=== PATIENT | female | born 1930 | race Caucasian/White ===

== ENCOUNTER 2016-11-26 20:55 | Inpatient (IN) | payer MEDICARE, MEDICAID ==
[2016-11-26] MEDS ORDERED: SODIUM CHLORIDE 0.9% 10 ML FLUSH FLUSH PRN (21:05)
[2016-11-26] MEDS ORDERED: Albuterol/Ipratropium Neb 3 ML NEB NEB ONE (21:06)
--- NOTE | 2016-11-26 21:11 | EDPRACDOC ---
- General Information Information Source: Patient Mode Of Arrival: Ambulance - History of Present Illness Onset: today Exact Onset of Symptoms: Unknown HPI: Pt states she just doesn't feel well today and has pain in R hip and knee due to fall yesterday. C/o yellow productive cough, leg swelling. Denies fever, earache, sore throat, congestion, cp, so, abd pain, n/v, changes in bowel or bladder, rash. Symptoms Started: Reports: Gradually Symptoms Description: Constant Weakness: Bilateral: Generalized Symptoms: Reports: Weak Symptom Severity: Reports: Unable to performs ADL's Relevant History of: Denies: O, Anemia, CVA, DM, Electrolyte disorder, GI Bleed , MA, TIA Associated signs and symptoms:: Reports: None <Sonali Monroe E - Last Filed: 11/26/16 23:32> <Anastacia Gonzalez - Last Filed: 11/26/16 23:36> - General Information Stated Complaint: DIFFICULTY BREATHING Time Seen by Provider: 11/26/16 21:00 Home Medications: Home Medications Albuterol Sulfate [Proventil (Concentrate)] 0.5 ml NEB BID 11/05/15 Alprazolam [Xanax] 0.5 mg PO QHS 11/05/15 Aspirin/Calcium Carbonate/Mag [Aspirin Buffered 325 mg Tab] 325 mg PO DAILY Atorvastatin Calcium [Lipitor] 10 mg PO QHS 11/05/15 Azelastine HCl [Astelin] 1 spray RJ BID 11/05/15 Cetirizine HCl [Zyrtec] 10 mg PO DAILY 11/05/15 Docusate Sodium 100 mg PO DAILY 11/05/15 Escitalopram Oxalate [Lexapro] 20 mg PO DAILY 11/05/15 Ferrous Sulfate 325 mg PO DAILY 11/05/15 Fluticasone Propionate [Flonase] 1 spray RJ DAILY 11/05/15 Fluticasone/Salmeterol [Advair 250-50 Diskus] 1 puff INH BID 11/05/15 Furosemide [Lasix] 40 mg PO BID 11/05/15 Glipizide Xl [Glucotrol Xl] 2.5 mg PO 0700 11/05/15 Multivitamin [Multiple Vitamins] 1 tab PO DAILY 11/05/15 Oxycodone HCl [Roxicodone] 5 mg PO QID 11/05/15 Pantoprazole Sodium [Protonix] 40 mg PO BID 11/05/15 Polyethylene Glycol 3350 [Miralax] 17 gm PO DAILY 11/05/15 Potassium Chloride 20 meq PO DAILY 11/05/15 Ropinirole HCl 3 mg PO QHS 11/05/15 Verapamil [Calan, Isoptin] 40 mg PO TID 11/05/15 Carboxymethylcellulos/Glycerin [Refresh Optive Eye Drops] 1 drop OU BID Prednisone [Deltasone, Orasone] 5 mg PO DAILY 11/06/15 Tiotropium Bradford [Spiriva] 18 mcg INH DAILY 11/06/15 Vitamin E 1,000 unit PO DAILY 11/06/15 Acetaminophen Ex Str Tablet [TYLENOL EXTRA STRENGTH Tablet] 1,000 mg PO Q6H PRN 10/14/16 Cranberry Extract/Vit C [Azo Cranberry Softgel (250 mg/30 mg)] 1 cap PO DAILY Cyanocobalamin (Vitamin B-12) [Cyanocobalamin Injection] 1,000 mcg IM QMONTH Loperamide HCl [Imodium] 2 mg PO DIR PRN MDD 8 CAPS/DAY 10/14/16 Mag Hydrox/Al Hydrox/Simeth [Maalox Suspension] 30 ml PO QID PRN 10/14/16 Magnesium Hydroxide [Milk of Magnesia] 30 ml PO BID PRN 10/14/16 Phosp Acid/Dextrose/Fructose [Emetrol Oral Solution] 30 ml PO .Q15M PRN Tizanidine [Zanaflex] 2 mg PO Q8H PRN 10/14/16 Levofloxacin [Levaquin] 750 mg PO Q48H #3 tablet 10/19/16 Probiotic Blend [Alycia Q] 1 tab PO BID #20 tab 10/19/16 Allergies/Adverse Reactions: Allergies Allergy/AdvReac Type Severity Reaction Status Date / Time nitrofurantoin Allergy Intermediate Unknown/See Verified 11/13/15 14:43 [From Macrobid] Comments nitrofurantoin Allergy Intermediate Unknown/See Verified 11/13/15 14:43 macrocrystalline Comments [From Macrobid] Sulfa (Sulfonamide Allergy Intermediate Rash-Genera Verified 11/13/15 14:43 Antibiotics) lized Penicillins Allergy Rash-Genera Verified 11/13/15 14:43 lized ED Past Medical History - History Reviewed Yes Nurses notes reviewed and agree except as marked - Patient Medical History Neurological History: Reports: Cerebrovascular Accident (possible CVA in past, causing decreased vision in Left eye) Cardiac History: Reports: Coronary Artery Disease (stent x 2), Hypertension, Congestive Heart Failure (in past. ECHO 2010: Normal EF. Mild LVH. Mild TR, [place], MR.), Cardiac Catheterization (stent to RCA in 2005 and with ARACELI stent to RCA 2007), Stress Test (11/2011: Fixed inferior wall defect is noted, probably due to scarring. EF76), Hypercholesterolemia, Syncope Respiratory History: Reports: Asthma, COPD, Pneumonia (AUG 2013), Emphysema GI/ History: Reports: Kidney Stones, Gastroesophageal Reflux (and chronic dysphagia), Ulcer Musculoskeletal History: Reports: Arthritis (and Left arm decreased mobility due to old fracture), Gout (HANDS) Psychological History: Reports: Anxiety. Denies: Depression, Substance Use Disorder Systemic History: Reports: Cancer (R breast 1996, no recurrence.), Anemia (iron deficiency), Diabetes (Type 2, not on insulin) Surgical History: Reports: Cholecystectomy, Hysterectomy (and RIGHT MASTECTOMY.) , Angioplasty (1989), Cardiac Catheterization (stent to RCA in 2005 and with ARACELI stent to RCA 2007), Other (FRACTURED MANDIBLE REPAIR. Shoulder surgery. Right tot shoulder.) Date of Last Radiation Treatment: 1996 - Family Medical History Reports: Diabetes (DAUGHTER), Cancer (DAUGTHER - breast; daughter - colon), Cardiac Disorders (MOTHER, FATHER, SISTER). Denies: Hypertension, Stroke - Social Medical History Smoking Status: Former smoker (Quit 1992. Started smoking at 15yo. Smoked x 48 years.) Social History: Denies: Substance Use Disorder ETOH: None Substance Abuse: None Lives In: Assisted Living <MonroeSonali E - Last Filed: 11/26/16 23:32> EDM Review of Systems - Review of Systems Constitutional: Weakness Eyes: No Symptoms Reported. negative: Redness, Blurred Vision, Double Vision, Discharge, Pain, Light Sensitive, Photophobia Ears: No Symptoms Reported. negative: Pain, Hearing Loss, Drainage, Ear Pulling Throat: No Symptoms Reported. negative: Pain, Swelling Nose: No Symptoms Reported. negative: Congestion, Bleeding, Discharge, Injection, Swelling, Deformity, Ecchymosis, Tender, Abrasion, Laceration Mouth: No Symptoms Reported. negative: Pain, Drooling Respiratory: Cough Cardiovascular: No Symptoms Reported. negative: Chest Pain, Palpitations, Syncope, Edema, Orthopnea, PND, Skin Mottling, Cyanosis Gastrointestinal: No Symptoms Reported. negative: Pain, Constipation, Nausea, Vomiting, Diarrhea, Melena, Formula Intolerance Genitourinary: No Symptoms Reported. negative: Dysuria, Hematuria, Frequency, Discharge, Bleeding, Testicular Pain, Neurological: No Symptoms Reported. negative: Headache, Dizziness, Seizure, Numbness, Weakness, Speech Difficulty, Gait Difficulty Musculoskeletal: Hip, Knee Integumentary: No Symptoms Reported. negative: Itching, Rash, Bruising, Wound Allergic/Immunologic: No Symptoms Reported. negative: Hives, Itching Hematologic: No Symptoms Reported. negative: Lymphadenopathy, Easy Bruising, Easy Bleeding, Anemia, Past Transfusions, Past Transfusion Reaction, Other Psychiatric: No Symptoms Reported. negative: Anxiety, Depression, Hallucinations, Insomnia, Suicidal <Sonali Monroe - Last Filed: 11/26/16 23:32> - Physical Exam Constitutional: Alert Oriented to: Time, Person, Place Last recorded Vital Signs: Oxygen Pulse Oxygen Saturation O2 Device Oxygen Flow Rate Fraction of Inspired Oxygen ( FIO2) - HEENT Head: Normal ( normocephalic) Eye Exam: Normal (PERRL, EOMI, Sclera white) Oropharynx: Normal (Pharynx:Moist without exudate,Gums-no swelling) Tympanic Membrane: Normal ENT EAC: Normal TMJ: Normal Nose: No Symptoms Reported (septum midline) Neck: Normal (FROM, trachea at midline) - Respiratory/Cardiovascular Respiratory: Rales Cardiovascular: Normal (RRR without murmur, gallop or rub) - GI Auscultation: Normal (NABS) Palpation: Normal (Soft,No rebound or guarding, non distended) Tenderness: Non tender - Musculoskeletal Back: Normal (Non-Tender) Extremities: Edema, Pedal Edema (bilateral) - Integumentary Skin: Normal, Warm, Dry Lymphatics: Normal (no adenopathy) - Neurologic Memory Impaired: Normal Motor Function: Normal (Normal tone, Pulses 2+ No cyanosis or edema, FROM) Mood Description: Normal Perception: Normal <Sonali Monroe - Last Filed: 11/26/16 23:32> - Physical Exam Last recorded Vital Signs: Last Vital Signs Temp 98.3 F 11/26/16 21:09 Pulse 92 11/26/16 21:30 Resp 18 11/26/16 21:30 BP 132/62 11/26/16 21:30 Pulse Ox 92 11/26/16 21:30 Oxygen Pulse Oxygen Saturation 92 O2 Device Oxygen Flow Rate 2 Fraction of Inspired Oxygen ( FIO2) <Anastacia Gonzalez - Last Filed: 11/26/16 23:36> - Differential Diagnosis Dehydration, Dysrhythmia, Electrolyte disorder, Hypoxemia, Other (pna, sesis) - Results 11/26/16 21:35 11/26/16 21:35 - EKG EKG #1 EKG Time: 21:07 Rate: bpm: 95 [place]: LAD Rhythm: NSR Block: 1, AVB ST: Nonsp Comparison: 10/14/16 (no significant change) - Diagnostic Imaging Chest Image interpreted by: Radiologist IMPRESSION: Left lung base atelectasis versus pneumonia. Diffuse interstitial prominence may represent underlying interstitial lung disease/fibrosis or pneumonia. Clinical correlation and follow-up recommended. Knee Image interpreted by: Radiologist IMPRESSION: No acute fracture or dislocation. Hip Image interpreted by: Radiologist IMPRESSION: No acute fracture or dislocation. <Sonali Monroe - Last Filed: 11/26/16 23:32> - Re-evaluation Re-evaluation 3 Re-evaluation Time: 23:35 WELL-APPEARING AFTER SUPPLEMENTAL OXYGENATION STABLE FOR INPATIENT CARE AT THIS TIME. - Results 11/26/16 21:35 11/26/16 21:35 WBC 18.1 xk/uL (3.8-10.8) H 11/26/16 21:35 RBC 4.05 xM/uL (4.20-5.40) L 11/26/16 21:35 Hgb 10.9 g/dL (12.0-16.0) L 11/26/16 21:35 Hct 34.5 % (36-47) L 11/26/16 21:35 MCV 85 fL (81-99) 11/26/16 21:35 MCH 27.0 pg (27-32) 11/26/16 21:35 MCHC 31.7 g/dl (33-36) L 11/26/16 21:35 RDW 14.5 % (11.5-14.5) 11/26/16 21:35 Plt Count 330 xk/uL (130-400) 11/26/16 21:35 MPV 6.5 fL (7.4-10.4) L 11/26/16 21:35 Neut % (Auto) 85.9 % (45-76) H 11/26/16 21:35 Lymph % (Auto) 8.1 % (17-44) L 11/26/16 21:35 Dawson % (Auto) 5.3 % (3-10) 11/26/16 21:35 Eos % (Auto) 0.3 % (0-5) 11/26/16 21:35 Baso % (Auto) 0.4 % (0-2) 11/26/16 21:35 Absolute Neuts (auto) 15.39 xk/uL (1.7-8.2) H 11/26/16 21:35 Absolute Lymphs (auto) 1.45 xk/uL (0.65-4.75) 11/26/16 21:35 PT 11.0 SEC (9.2-11.2) 11/26/16 21:35 INR 1.1 11/26/16 21:35 APTT 27.6 SEC (22-35) 11/26/16 21:35 Puncture Site Right radial 11/26/16 21:15 pH 7.400 pH UNITS (7.35-7.45) 11/26/16 21:15 pCO2 47.0 mmHg (35-45) H 11/26/16 21:15 pO2 45.0 mmHg (80-100) L* 11/26/16 21:15 HCO3 29.1 MMOL/L (22-26) H 11/26/16 21:15 Total CO2 30.5 MMOL/L (23-27) H 11/26/16 21:15 Base Excess 3.5 (+/- 2) H 11/26/16 21:15 FiO2 % .21 11/26/16 21:15 Specimen Drawn By Makenzie 11/26/16 21:15 Sodium 137 mEq/L (137-146) 11/26/16 21:35 Potassium 3.7 mEq/L (3.5-5.1) 11/26/16 21:35 Chloride 95 mEq/L (98-107) L 11/26/16 21:35 Carbon Dioxide 30 mMOL/L (22-33) 11/26/16 21:35 Anion Gap 16 mEq/L (8-16) 11/26/16 21:35 BUN 26 MG/DL (7-17) H 11/26/16 21:35 Creatinine 1.20 MG/DL (0.52-1.04) H 11/26/16 21:35 Estimated GFR (MDRD) 43 mL/min (>=60) L 11/26/16 21:35 Glucose 143 MG/DL (70-99) H 11/26/16 21:35 Calculated Osmolality 271 MOs/Kg (270-290) 11/26/16 21:35 Lactic Acid 0.9 mEq/L (0.7-2.1) 11/26/16 21:35 Calcium 9.0 MG/DL (8.4-10.2) 11/26/16 21:35 Corrected Calcium 9.2 MG/DL (8.4-10.2) 11/26/16 21:35 Total Bilirubin 0.5 MG/DL (0.2-1.3) 11/26/16 21:35 AST 50 IU/L (14-36) H 11/26/16 21:35 ALT 33 IU/L (9-52) 11/26/16 21:35 Alkaline Phosphatase 47 IU/L (55-165) L 11/26/16 21:35 Creatine Kinase 1067 IU/L (30-134) H 11/26/16 21:35 CK-MB (CK-2) 17.9 ng/mL (0-4.5) H 11/26/16 21:35 CK-MB (CK-2) Rel Index 1.7 (0.0-2.2) 11/26/16 21:35 Troponin I 0.03 ng/mL (<.04) 11/26/16 21:35 Nds-[id number] Pept 871 pg/mL (0-1800) 11/26/16 21:35 Total Protein 7.8 G/DL (6.3-8.2) 11/26/16 21:35 Albumin 3.8 G/DL (3.5-5.0) 11/26/16 21:35 Urine Color Yellow 11/26/16 21:52 Urine Clarity Clear 11/26/16 21:52 Urine pH 5.0 (5.0-8.0) 11/26/16 21:52 Ur Specific [place] 1.005 (1.003-1.035) 11/26/16 21:52 Urine Protein Neg (NEG/TRACE) 11/26/16 21:52 Urine Glucose (UA) Neg (NEGATIVE) 11/26/16 21:52 Urine Ketones Neg (NEGATIVE) 11/26/16 21:52 Urine Occult Blood 2+ (NEG/TRACE) H 11/26/16 21:52 Urine Nitrite Neg (NEGATIVE) 11/26/16 21:52 Urine Bilirubin Neg (NEGATIVE) 11/26/16 21:52 Urine Urobilinogen <2.0 MG/DL (0-1) 11/26/16 21:52 Ur Leukocyte Esterase Neg (NEGATIVE) 11/26/16 21:52 Urine RBC 5-10 (0-5) H 11/26/16 21:52 Urine WBC 0-2 (0-5) 11/26/16 21:52 Urine Bacteria Few (NEG/FEW) 11/26/16 21:52 Hyaline Casts 5-10 (0-2) H 11/26/16 21:52 Urine Mucus Occ (NEG/OCC) 11/26/16 21:52 Microbiology 11/26/16 21:35 Influenza Type A Antigen Screen - Final N/P - Naso/Pharyngeal NEGATIVE Please note: A NEGATIVE result does not exclude an influenza virus infection. It is a presumptive result and, if required, confirmation should be done using either a virus culture or an FDA-cleared influenza A&B molecular assay. ("NORMAL" value = "NEGATIVE".) Influenza Type B Antigen Screen - Final NEGATIVE Please note: A NEGATIVE result does not exclude an influenza virus infection. It is a presumptive result and, if required, confirmation should be done using either a virus culture or an FDA-cleared influenza A&B molecular assay. ("NORMAL" value = "NEGATIVE".) Lab Results 11/26/16 11/26/16 11/26/16 21:52 21:35 21:35 WBC 18.1 H RBC 4.05 L Hgb 10.9 L Hct 34.5 L MCV 85 MCH 27.0 MCHC 31.7 L RDW 14.5 Plt Count 330 MPV 6.5 L Neut % (Auto) 85.9 H Lymph % (Auto) 8.1 L Dawson % (Auto) 5.3 Eos % (Auto) 0.3 Baso % (Auto) 0.4 Absolute Neuts (auto) 15.39 H Absolute Lymphs (auto) 1.45 PT 11.0 INR 1.1 APTT 27.6 Puncture Site pH pCO2 pO2 HCO3 Total CO2 Base Excess FiO2 % Specimen Drawn By Sodium Potassium Chloride Carbon Dioxide Anion Gap BUN Creatinine Estimated GFR (MDRD) Glucose Calculated Osmolality Lactic Acid Calcium Corrected Calcium Total Bilirubin AST ALT Alkaline Phosphatase Creatine Kinase CK-MB (CK-2) CK-MB (CK-2) Rel Index Troponin I Nmo-P-Etzblshwslb Pept Total Protein Albumin Urine Color Yellow Urine Clarity Clear Urine pH 5.0 Ur Specific [place] 1.005 Urine Protein Neg Urine Glucose (UA) Neg Urine Ketones Neg Urine Occult Blood 2+ H Urine Nitrite Neg Urine Bilirubin Neg Urine Urobilinogen <2.0 Ur Leukocyte Esterase Neg Urine RBC 5-10 H Urine WBC 0-2 Urine Bacteria Few Hyaline Casts 5-10 H Urine Mucus Occ 11/26/16 11/26/16 11/26/16 21:35 21:35 21:15 WBC RBC Hgb Hct MCV MCH MCHC RDW Plt Count MPV Neut % (Auto) Lymph % (Auto) Dawson % (Auto) Eos % (Auto) Baso % (Auto) Absolute Neuts (auto) Absolute Lymphs (auto) PT INR APTT Puncture Site Right radial pH 7.400 pCO2 47.0 H pO2 45.0 L* HCO3 29.1 H Total CO2 30.5 H Base Excess 3.5 H FiO2 % .21 Specimen Drawn By Baras Sodium 137 Potassium 3.7 Chloride 95 L Carbon Dioxide 30 Anion Gap 16 BUN 26 H Creatinine 1.20 H Estimated GFR (MDRD) 43 L Glucose 143 H Calculated Osmolality 271 Lactic Acid 0.9 Calcium 9.0 Corrected Calcium 9.2 Total Bilirubin 0.5 AST 50 H ALT 33 Alkaline Phosphatase 47 L Creatine Kinase 1067 H CK-MB (CK-2) 17.9 H CK-MB (CK-2) Rel Index 1.7 Troponin I 0.03 Cbb-L-Vqgktoxucst Pept 871 Total Protein 7.8 Albumin 3.8 Urine Color Urine Clarity Urine pH Ur Specific [place] Urine Protein Urine Glucose (UA) Urine Ketones Urine Occult Blood Urine Nitrite Urine Bilirubin Urine Urobilinogen Ur Leukocyte Esterase Urine RBC Urine WBC Urine Bacteria Hyaline Casts Urine Mucus <Anastacia Gonzalez - Last Filed: 11/26/16 23:36> - Departure Disposition: Admit IP To This Hospital Education/Counseling Given To: Patient Education/Counseling Given Regarding: Diagnosis, Treatment Decision to Admit Time: 23:33 Decision to admit date: 11/26/16 Decision to admit: from ED - Physician Consulted Hospitalist Time Called: 23:33 Provider Called: Olivier Palomo [employer] Returned Call: 23:33 <Sonali Monroe - Last Filed: 11/26/16 23:32> <Anastacia Gonzalez - Last Filed: 11/26/16 23:36> - Departure Condition: Stable Final Diagnosis: Hypoxia, COPD exacerbation LLL pneumonia Qualifiers: Pneumonia type: due to unspecified organism Qualified Code(s): J18.1 - Lobar pneumonia, unspecified organism Strain of right hip Qualifiers: Encounter type: initial encounter Qualified Code(s): S76.011A - Strain of muscle, fascia and tendon of right hip, initial encounter Strain of right knee Qualifiers: Encounter type: initial encounter Qualified Code(s): S86.911A - Strain of unspecified muscle(s) and tendon(s) at lower leg level, right leg, initial encounter Referrals: None,No Provider [Primary Care Provider] - One Week
[2016-11-26 21:22] LABS: ABG Draw Site Right Radial; ALLEN'S TEST PASS; BEb 3.5 (+/- 2); TCO2 30.5 MMOL/L (23-27)
[2016-11-26 21:55] LABS: AUTOMATED BASOPHIL 0.4 % (0-2); AUTOMATED EOSINOPHIL 0.3 % (0-5); AUTOMATED LYMPH 8.1 % (17-44); AUTOMATED MONOCYTE 5.3 % (3-10); AUTOMATED NEUTROPHIL 85.9 % (45-76); MPV 6.5 fL (7.4-10.4)
[2016-11-26 22:01] LABS: BLOOD UREA NITROGEN 26 MG/DL (7-17); CALC CORRECTED 9.2 MG/DL (8.4-10.2); CALCULATED OSMOLALITY 271 MOs/Kg (270-290); CHLORIDE 95 mEq/L (98-107); CPK TOTAL WITH POSSIBLE MB 1067 IU/L (30-134); GLUCOSE 143 MG/DL (70-99); SODIUM LEVEL 137 mEq/L (137-146); TOTAL PROTEIN 7.8 G/DL (6.3-8.2)
[2016-11-26 22:03] LABS: PARTIAL THROMB. TIME 27.6 SEC (22-35); PT-INR 1.1
[2016-11-26 22:15] LABS: LEUKOCYTES/URINE NEG (NEGATIVE); NITRITE/URINE NEG (NEGATIVE); URINE OCCULT BLOOD 2+ (NEG/TRACE); WBC/URINE 0-2 (0-5)
[2016-11-26 22:16] LABS: CPKMB 17.9 ng/mL (0-4.5); CPKMB RELATIVE INDEX 1.7 (0.0-2.2)
--- NOTE | 2016-11-26 23:20 | DIRPT ---
CLINICAL DATA: 86-year-old female with fall and right hip pain. EXAM: RIGHT HIP (WITH PELVIS) 2-3 VIEWS COMPARISON: Radiograph dated 06/03/2013 FINDINGS: There is no acute fracture or dislocation. The bones are osteopenic. There are osteoarthritic changes of the hip joints bilaterally more prominent on the right with narrowing of the femoral acetabular joint space and superior migration of the femoral head. There is degenerative changes of the lower lumbar spine. Moderate stool noted throughout the colon. The soft tissues are grossly unremarkable. IMPRESSION: No acute fracture or dislocation. Electronically Signed By: Elvis Segal M.D. On: 11/26/2016 23:17
--- NOTE | 2016-11-26 23:22 | DIRPT ---
CLINICAL DATA: 86-year-old female with cough EXAM: CHEST 2 VIEW COMPARISON: Chest radiograph dated 10/14/2016 FINDINGS: Two views of the chest demonstrate emphysematous changes of the lungs. With diffuse interstitial prominence which could be related to underlying interstitial lung disease or sinuses changes. An area of increased density at the left lung base may represent atelectasis versus pneumonia. There is no pleural effusion or pneumothorax. Stable cardiac silhouette. Osteopenia with degenerative changes of the spine. Right shoulder arthroplasty. IMPRESSION: Left lung base atelectasis versus pneumonia. Diffuse interstitial prominence may represent underlying interstitial lung disease/fibrosis or pneumonia. Clinical correlation and follow-up recommended. Electronically Signed By: Elvis Segal M.D. On: 11/26/2016 23:19
--- NOTE | 2016-11-26 23:23 | DIRPT ---
CLINICAL DATA: 86-year-old female with right knee pain EXAM: RIGHT KNEE - COMPLETE 4+ VIEW COMPARISON: None. FINDINGS: No acute fracture or dislocation. The bones are osteopenic. No joint effusion. The soft tissues appear unremarkable. IMPRESSION: No acute fracture or dislocation. Electronically Signed By: Elvis Segal M.D. On: 11/26/2016 23:21
[2016-11-26] MEDS ORDERED: Levofloxacin 750 mg/150 ml D5W 750 MG/150 ML RTU IV ONE (23:31)
[2016-11-26] MEDS ORDERED: BISACODYL 10 MG SUPP PR PRN (23:38)
[2016-11-26] MEDS ORDERED: TUSSIONEX 5 ML ORAL SYRINGE PO PRN (23:38)
[2016-11-26] MEDS ORDERED: METOCLOPRAMIDE 10 MG/2 ML VIAL IV PRN (23:38)
[2016-11-26] MEDS ORDERED: BENZONATATE 100 MG PERLES PO PRN (23:38)
[2016-11-26] MEDS ORDERED: ALBUTEROL 0.083% 3 ML NEB NEB PRN (23:38)
[2016-11-26] MEDS ORDERED: PROMETHAZINE 25 MG/ML VIAL IV PRN (23:38)
[2016-11-26] MEDS ORDERED: SENNA CONCENTRATE TAB PO PRN (23:38)
[2016-11-26] MEDS ORDERED: GLUCAGON 1 MG VIAL SQ PRN (23:38)
[2016-11-26] MEDS ORDERED: ACETAMINOPHEN 325 MG SUPP PR PRN (23:38)
[2016-11-26] MEDS ORDERED: GLUCOSE (ORAL GEL) 15 GM TUBE PO PRN (23:38)
[2016-11-26] MEDS ORDERED: DEXTROSE 25 GM/50 ML PFS IV PRN (23:38)
[2016-11-26] MEDS ORDERED: CEFEPIME HYDROCHLORIDE 2 GM in D5W 100 ML IV SCH (23:45)
[2016-11-26] MEDS ORDERED: LEVOFLOXACIN 750 MG/150 ML IV SCH (23:45)
[2016-11-26] MEDS ORDERED: CYANOCOBALAMIN 1000 MCG/ML VIAL IM SCH (23:45)
[2016-11-26] MEDS ORDERED: D5W IV SCH (23:45)
[2016-11-26] MEDS ORDERED: TIZANIDINE 2 MG TAB PO PRN (23:47)
--- NOTE | 2016-11-26 23:50 | HISTPHYS ---
- Chief Complaint I fell and hurt my right knee and hip with a fair amount of pain in both. ( Chronic cough productive of yellowish phlegm and noticeably hypoxic today) - History of Present Illness Patient is a 86-year-old white female who comes into the emergency room this evening complaining of right hip and knee pain with a chronic cough after recent fall at [facility]. Her sputum has been yellow recently. Fortunately x-rays of her knee and hip only show evidence of osteoarthritis and she does have limited range of motion of the right hip causing discomfort when I externally rotate it. She was found to be extremely hypoxic with blood gas analysis showing her PO2 to be only 45 on room air with an elevated white count of 18,000. She has scarring in her left lower lung more noticeable than the right and is known to grow Pseudomonas out of her sputum September 2016 as well as being MRSA positive in the nares. She is on more than 25 [id number] and prescription medications and suffers with chronic obstructive pulmonary disease in addition to previous stroke diabetes mellitus GI bleed myocardial infarction chronic back pain and anemia. Allergies also plague her. - Medical History Cardiac History: Reports: Coronary Artery Disease (stent x 2), Hypertension, Congestive Heart Failure (in past. ECHO 2010: Normal EF. Mild LVH. Mild TR, NH, MR.), Cardiac Catheterization (stent to RCA in 2005 and with ARACELI stent to RCA 2007), Stress Test (11/2011: Fixed inferior wall defect is noted, probably due to scarring. EF76), Hypercholesterolemia, Syncope Respiratory History: Reports: Asthma, COPD, Pneumonia (AUG 2013), Emphysema GI/ History: Reports: Kidney Stones, Gastroesophageal Reflux (and chronic dysphagia), Ulcer Musculoskeletal History: Reports: Arthritis (and Left arm decreased mobility due to old fracture), Gout (HANDS) Systemic History: Reports: Cancer (R breast 1996, no recurrence.), Anemia (iron deficiency), Diabetes (Type 2, not on insulin) Neurological History: Reports: Cerebrovascular Accident (possible CVA in past, causing decreased vision in Left eye) Psychological History: Reports: Anxiety. Denies: Depression, Substance Use Disorder - Surgical History Reports: Cholecystectomy, Hysterectomy (and RIGHT MASTECTOMY.), Angioplasty ( 1989), Cardiac Catheterization (stent to RCA in 2005 and with ARACELI stent to RCA 2007), Other (FRACTURED MANDIBLE REPAIR. Shoulder surgery. Right tot shoulder.) - Medictions/Allergies Allergies nitrofurantoin [From Macrobid] Allergy (Intermediate, Verified 11/13/15 14:43) Unknown/See Comments SOB nitrofurantoin macrocrystalline [From Macrobid] Allergy (Intermediate, Verified 11/13/15 14:43) Unknown/See Comments SOB, PT STATED SHE IS NOT ALLERGIC TO MACROBID Sulfa (Sulfonamide Antibiotics) Allergy (Intermediate, Verified 11/13/15 14:43) Rash-Generalized Penicillins Allergy (Verified 11/13/15 14:43) Rash-Generalized Current Medication List: Reviewed Home Medications Albuterol Sulfate [Proventil (Concentrate)] 0.5 ml NEB BID 11/05/15 Alprazolam [Xanax] 0.5 mg PO QHS 11/05/15 Aspirin/Calcium Carbonate/Mag [Aspirin Buffered 325 mg Tab] 325 mg PO DAILY Atorvastatin Calcium [Lipitor] 10 mg PO QHS 11/05/15 Azelastine HCl [Astelin] 1 spray RJ BID 11/05/15 Cetirizine HCl [Zyrtec] 10 mg PO DAILY 11/05/15 Docusate Sodium 100 mg PO DAILY 11/05/15 Escitalopram Oxalate [Lexapro] 20 mg PO DAILY 11/05/15 Ferrous Sulfate 325 mg PO DAILY 11/05/15 Fluticasone Propionate [Flonase] 1 spray RJ DAILY 11/05/15 Fluticasone/Salmeterol [Advair 250-50 Diskus] 1 puff INH BID 11/05/15 Furosemide [Lasix] 40 mg PO BID 11/05/15 Glipizide Xl [Glucotrol Xl] 2.5 mg PO 0700 11/05/15 Multivitamin [Multiple Vitamins] 1 tab PO DAILY 11/05/15 Oxycodone HCl [Roxicodone] 5 mg PO QID 11/05/15 Pantoprazole Sodium [Protonix] 40 mg PO BID 11/05/15 Polyethylene Glycol 3350 [Miralax] 17 gm PO DAILY 11/05/15 Potassium Chloride 20 meq PO DAILY 11/05/15 Ropinirole HCl 3 mg PO QHS 11/05/15 Verapamil [Calan, Isoptin] 40 mg PO TID 11/05/15 Carboxymethylcellulos/Glycerin [Refresh Optive Eye Drops] 1 drop OU BID Prednisone [Deltasone, Orasone] 5 mg PO DAILY 11/06/15 Tiotropium [place] [Spiriva] 18 mcg INH DAILY 11/06/15 Vitamin E 1,000 unit PO DAILY 11/06/15 Acetaminophen Ex Str Tablet [TYLENOL EXTRA STRENGTH Tablet] 1,000 mg PO Q6H PRN 10/14/16 Cranberry Extract/Vit C [Azo Cranberry Softgel (250 mg/30 mg)] 1 cap PO DAILY Cyanocobalamin (Vitamin B-12) [Cyanocobalamin Injection] 1,000 mcg IM QMONTH Loperamide HCl [Imodium] 2 mg PO DIR PRN MDD 8 CAPS/DAY 10/14/16 Mag Hydrox/Al Hydrox/Simeth [Maalox Suspension] 30 ml PO QID PRN 10/14/16 Magnesium Hydroxide [Milk of Magnesia] 30 ml PO BID PRN 10/14/16 Phosp Acid/Dextrose/Fructose [Emetrol Oral Solution] 30 ml PO .Q15M PRN Tizanidine [Zanaflex] 2 mg PO Q8H PRN 10/14/16 Levofloxacin [Levaquin] 750 mg PO Q48H #3 tablet 10/19/16 Probiotic Blend [Alycia Q] 1 tab PO BID #20 tab 10/19/16 - Family History Reports: Diabetes (DAUGHTER), Cancer (DAUGTHER - breast; daughter - colon), Cardiac Disorders (MOTHER, FATHER, SISTER). Denies: Hypertension, Stroke - Social History Travel Outside of [place] in the Last 3 Months?: No Lives: Alone, in Assisted Living Smoking Status: Former smoker (Quit 1992. Started smoking at 15yo. Smoked x 48 years.) Social History: Denies: Alcohol Use, Substance Use Disorder - Review of Systems Constitutional: Fatigue, Weakness. negative: Chills, Fever Eyes: Blurred Vision (Right eye with oval pupil) Ears: No Symptoms Reported (No ear pain or discharge) Nose: No Symptoms Reported (No nasal discharge/congestion or bleeding) Mouth: No Symptoms Reported (No oropharyngeal lesions or erythema) Throat/Neck: No Symptoms Reported (No throat pain or swelling.No oropharyngeal lesions or erythema.) Respiratory: Cough, Wheezing Cardiovascular: No Symptoms Reported (No chest pain or palpitations.) Gastrointestinal: No Symptoms Reported (No abdominal pain, nausea, vomiting, diarrhea, constipation, or bloody stool.) Genitourinary: No Symptoms Reported (No dysuria or hematuria.) Neurological: Weakness Musculoskeletal:: Chronic low back pain (Wears 100 mg fentanyl patch on left shoulder), Osteoarthritis, Other Integumentary: Bruising, Wound (Left knee wound from recent fall) Allergic/Immunologic: No Symptoms Reported (no rashes or lesions) Hematologic: Easy Bruising, Easy Bleeding, Anemia Endocrine: Osteoporosis, Diabetes Psychiatric: No Symptoms Reported (Fully oriented, with normal and appropriate affect.) - Physical Exam Vital Signs: Initial Vitals Temperature 98.3 F 11/26/16 21:09 Pulse Rate 96 11/26/16 21:09 Respiratory Rate 18 11/26/16 21:09 Blood Pressure 131/62 11/26/16 21:09 Pulse Oxygen Saturation 95 11/26/16 21:09 Constitutional: No apparent distress, Alert Oriented to: Time, Person, Place - HEENT Head: Normal (normocephalic, atraumatic.), Other (No cervical lymphadenopathy. No supraclavicular lymphadenopathy. Neck: No palpable mass, supple , trachea midline.) Eye: Normal (pupils equal, reactive to light, and round; EOMI, Sclera white) Oropharynx: Normal (Pharynx: Moist without exudate,Gums-no swelling, No oropharyngeal lesions or erythema, Mucous membranes are dry.) ENT EAC: Normal (No oropharyngeal lesions or erythema. Mucous membranes are dry. ) TMJ: Normal Nose: No Symptoms Reported (septum midline, Nares patent, without discharge or bleeding.) Respiratory: Normal - CTA (Clear to auscultation bilaterally. No wheezing, rales , rhonchi. Chest wall movements are symmetric. No use of accessory muscles to breathe.) Cardiovascular: Normal (RRR , Normal S1, S2. No murmurs, rubs, or gallops. PMI non-displaced. Carotids: no carotid bruits. No bradycardia or tachycardia. DP pulses 2+ bilaterally.) - GI Auscultation: Normal (normal active sounds) Palpation: Normal (Soft,non distended,nontender. No hepatosplenomegaly.) Tenderness: Non tender (No rebound or guarding) Alexander's Sign: Negative - Musculoskeletal Back: Normal (Non-Tender) Extremities: Normal (Normal tone, DP pulses 2+ bilaterally, No cyanosis or edema bilaterally, FROM bilaterally.) Spine: non-tender, limited range of motion, other (Kyphotic) - Integumentary Skin: Cool, Dry, Other (Thin atrophic skin) Lymphatics: Normal (No cervical lymphadenopathy. No supraclavicular lymphadenopathy.) - Neurologic Memory Impaired: Normal Motor Function: negative: Normal (Slightly diminished strength but ambulatory with a walker) Cranial Nerve: Normal (CN II-XII intact sensation, strength 5/5) Cerebellar: Normal. negative: Ataxia, Past-Pointing, Tremor Mood Description: Normal (Fully oriented. Normal and appropriate affect.) Thought: Coherent Perception: Normal (Normal and appropriate affect.) - Focused CV Perfusion Exam Vital Signs: Last Vital Signs Temp 98.3 F 11/26/16 21:09 Pulse 92 11/26/16 21:30 Resp 18 11/26/16 21:30 BP 132/62 11/26/16 21:30 Pulse Ox 92 11/26/16 21:30 - Lab Results 11/26/16 21:35 11/26/16 21:35 Laboratory Results - last 24 hr 11/26/16 11/26/16 11/26/16 21:15 21:35 21:35 WBC RBC Hgb Hct MCV MCH MCHC RDW Plt Count MPV Neut % (Auto) Lymph % (Auto) [place] % (Auto) Eos % (Auto) Baso % (Auto) Absolute Neuts (auto) Absolute Lymphs (auto) PT INR APTT Puncture Site Right radial pH 7.400 pCO2 47.0 H pO2 45.0 L* HCO3 29.1 H Total CO2 30.5 H Base Excess 3.5 H FiO2 % .21 Specimen Drawn By Baras Sodium 137 Potassium 3.7 Chloride 95 L Carbon Dioxide 30 Anion Gap 16 BUN 26 H Creatinine 1.20 H Estimated GFR (MDRD) 43 L Glucose 143 H Calculated Osmolality 271 Lactic Acid 0.9 Calcium 9.0 Corrected Calcium 9.2 Total Bilirubin 0.5 AST 50 H ALT 33 Alkaline Phosphatase 47 L Creatine Kinase 1067 H CK-MB (CK-2) 17.9 H CK-MB (CK-2) Rel Index 1.7 Troponin I 0.03 [id number]-[id number] Pept 871 Total Protein 7.8 Albumin 3.8 Urine Color Urine Clarity Urine pH Ur Specific [place] Urine Protein Urine Glucose (UA) Urine Ketones Urine Occult Blood Urine Nitrite Urine Bilirubin Urine Urobilinogen Ur Leukocyte Esterase Urine RBC Urine WBC Urine Bacteria Hyaline Casts Urine Mucus 11/26/16 11/26/16 11/26/16 21:35 21:35 21:52 WBC 18.1 H RBC 4.05 L Hgb 10.9 L Hct 34.5 L MCV 85 MCH 27.0 MCHC 31.7 L RDW 14.5 Plt Count 330 MPV 6.5 L Neut % (Auto) 85.9 H Lymph % (Auto) 8.1 L [place] % (Auto) 5.3 Eos % (Auto) 0.3 Baso % (Auto) 0.4 Absolute Neuts (auto) 15.39 H Absolute Lymphs (auto) 1.45 PT 11.0 INR 1.1 APTT 27.6 Puncture Site pH pCO2 pO2 HCO3 Total CO2 Base Excess FiO2 % Specimen Drawn By Sodium Potassium Chloride Carbon Dioxide Anion Gap BUN Creatinine Estimated GFR (MDRD) Glucose Calculated Osmolality Lactic Acid Calcium Corrected Calcium Total Bilirubin AST ALT Alkaline Phosphatase Creatine Kinase CK-MB (CK-2) CK-MB (CK-2) Rel Index Troponin I [id number]-[id number] Pept Total Protein Albumin Urine Color Yellow Urine Clarity Clear Urine pH 5.0 Ur Specific [place] 1.005 Urine Protein Neg Urine Glucose (UA) Neg Urine Ketones Neg Urine Occult Blood 2+ H Urine Nitrite Neg Urine Bilirubin Neg Urine Urobilinogen <2.0 Ur Leukocyte Esterase Neg Urine RBC 5-10 H Urine WBC 0-2 Urine Bacteria Few Hyaline Casts 5-10 H Urine Mucus Occ - Assessment (1) LLL pneumonia J18.1 - LOBAR PNEUMONIA, UNSPECIFIED ORGANISM Acute Present on Admission: Yes Qualifiers: Pneumonia type: due to Pseudomonas Qualified Code(s): J15.1 - Pneumonia due to Pseudomonas His grown Pseudomonas from her sputum in the past. Will cover for this with cefepime and Cipro. Also history of MRSA positivity and if nares are positive will use vancomycin for now. (2) Acute respiratory failure with hypoxia J96.01 - ACUTE RESPIRATORY FAILURE WITH HYPOXIA Chronic Present on Admission: Yes Patient is noticeably hypoxic with PO2 of only 45 a room air likely related to her COPD and acute infection. Monitor oxygen saturation levels and keep O2 at a more acceptable level but do not want to send her into hypercarbic respiratory failure. (3) COPD (chronic obstructive pulmonary disease) J44.9 - CHRONIC OBSTRUCTIVE PULMONARY DISEASE, UNSPECIFIED Chronic Present on Admission: Yes Qualifiers: COPD type: COPD with acute lower respiratory infection Qualified Code(s): J44.0 - Chronic obstructive pulmonary disease with acute lower respiratory infection Nebs IV antibiotics including cefepime Cipro for the history Pseudomonas and vancomycin if MRSA remains positive. (4) Diabetes mellitus type 2, controlled E11.9 - TYPE 2 DIABETES MELLITUS WITHOUT COMPLICATIONS Chronic Present on Admission: Yes Qualifiers: Diabetes mellitus complication status: with other specified complication Diabetes mellitus fci insulin use: without terminal gauger use Qualified Code( s): E11.69 - Type 2 diabetes mellitus with other specified complication Probably due to fci use of Prednisone. Hold oral diabetes medications. Check fingerstick blood sugars twice daily with Sliding scale insulin. HgA1c and urine microalbumin are pending (5) Hypertension I10 - ESSENTIAL (PRIMARY) HYPERTENSION Chronic Present on Admission: Yes Qualifiers: Hypertension type: essential hypertension Qualified Code(s): I10 - Essential (primary) hypertension controlled with Verapamil. (6) Leukocytosis D72.829 - ELEVATED WHITE BLOOD CELL COUNT, UNSPECIFIED Acute Present on Admission: Yes Qualifiers: Leukocytosis type: bandemia Qualified Code(s): D72.825 - Bandemia Related to acute infection. (7) Coronary artery disease I25.10 - ATHSCL HEART DISEASE OF [place] CORONARY ARTERY W/O ANG PCTRS Chronic Present on Admission: Yes Qualifiers: Coronary Disease-Associated Artery/Lesion type: [place] artery [place] vs. transplanted heart: [place] heart Associated angina: without angina Qualified Code(s): I25.10 - Atherosclerotic heart disease of [place] coronary artery without angina pectoris (8) CAD (coronary artery disease) I25.10 - ATHSCL HEART DISEASE OF [place] CORONARY ARTERY W/O ANG PCTRS Chronic Qualifiers: Coronary Disease-Associated Artery/Lesion type: [place] artery [place] vs. transplanted heart: [place] heart Associated angina: without angina Qualified Code(s): I25.10 - Atherosclerotic heart disease of [place] coronary artery without angina pectoris Continue medications Case Care Discussed with: Patient, Nursing Staff Total Time: 58 minutes Critical Care: No Code: 10634
[2016-11-27] MEDS ORDERED: ARTIFICIAL TEARS OPH SOLN 15 ML OU SCH (01:00)
[2016-11-27] MEDS ORDERED: FLUTICASONE PROPIONATE 16 GM BOT NAS SCH (01:00)
[2016-11-27] MEDS ORDERED: CIPROFLOXACIN HCL 250 MG TAB PO SCH (01:00)
[2016-11-27] MEDS ORDERED: AZELASTINE 137 MCG/SPRAY NASAL SPRAY NAS SCH (01:00)
[2016-11-27] MEDS ORDERED: FLUTICASONE/SALMETEROL 250/50 DISKUS INH SCH (01:00)
[2016-11-27] MEDS: PROBIOTIC BLEND TAB PO SCH ×3 (01:38→17:36)
[2016-11-27] MEDS ORDERED: CEFEPIME HYDROCHLORIDE 1 GM in D5W 100 ML IV SCH (02:00)
[2016-11-27] MEDS: NS/KCl 20 mEq 1,000 ML IV SCH (02:09)
[2016-11-27] MEDS: ENOXAPARIN 30 MG/0.3 ML PFS SQ SCH ×2 (02:20→17:36)
[2016-11-27] MEDS: Albuterol/Ipratropium Neb 3 ML NEB NEB SCH ×4 (02:23→20:34)
[2016-11-27 06:28] LABS: AUTOMATED BASOPHIL 0.6 % (0-2); AUTOMATED LYMPH 15.5 % (17-44); AUTOMATED MONOCYTE 6.3 % (3-10); AUTOMATED NEUTROPHIL 75.6 % (45-76)
[2016-11-27 06:47] LABS: BLOOD UREA NITROGEN 26 MG/DL (7-17); CALCIUM 8.4 MG/DL (8.4-10.2); CALCULATED OSMOLALITY 266 MOs/Kg (270-290); CHLORIDE 95 mEq/L (98-107); GLUCOSE 82 MG/DL (70-99); SODIUM LEVEL 136 mEq/L (137-146)
[2016-11-27] MEDS: VERAPAMIL 40 MG TAB PO SCH ×3 (07:01→20:46)
[2016-11-27] MEDS: GLIPIZIDE XL 2.5 MG TAB PO SCH (07:37)
[2016-11-27] MEDS: REGULAR INSULIN 100 UNITS/ML - 3 ML VIAL SQ SCH ×2 (07:38→17:28)
[2016-11-27] MEDS: AZELASTINE 137 MCG/SPRAY NASAL SPRAY NAS SCH ×2 (08:53→20:48)
[2016-11-27] MEDS: ARTIFICIAL TEARS OPH SOLN 15 ML OU SCH ×2 (08:54→20:46)
[2016-11-27] MEDS: FLUTICASONE PROPIONATE 16 GM BOT NAS SCH (08:56)
[2016-11-27] MEDS: ESCITALOPRAM OXALATE 10 MG TAB PO SCH (08:59)
[2016-11-27] MEDS ORDERED: GLYCERIN OU SCH (09:00)
[2016-11-27] MEDS ORDERED: Docusate Sodium 100 MG CAP PO SCH (09:00)
[2016-11-27] MEDS ORDERED: [UNRECOGNIZED DRUG - OTHER] OU SCH (09:00)
[2016-11-27] MEDS ORDERED: CETIRIZINE HCL 10 MG PO SCH (09:00)
[2016-11-27] MEDS: CETIRIZINE HCL 10 MG TAB PO SCH (09:00)
[2016-11-27] MEDS ORDERED: Non-Formulary Medication ITEM (Escitalopram Oxalate [Lexapro] 20 MG) PO SCH (09:00)
[2016-11-27] MEDS ORDERED: Non-Formulary Medication ITEM (Tiotropium Bromide [Spiriva] 18 MCG) INH SCH (09:00)
[2016-11-27] MEDS ORDERED: CARBOXYMETHYLCELLULOS OU SCH (09:00)
[2016-11-27] MEDS: FUROSEMIDE 40 MG TAB PO SCH ×2 (09:02→16:40)
[2016-11-27] MEDS: Docusate Sodium 100 MG CAP PO SCH (09:27)
[2016-11-27] MEDS: OXYCODONE HCL 5 MG TABLET PO SCH ×4 (09:27→20:46)
[2016-11-27] MEDS: FLUTICASONE/SALMETEROL 250/50 DISKUS INH SCH ×2 (09:37→20:39)
[2016-11-27] MEDS ORDERED: Vaccine Screening Complete SCH (13:00)
[2016-11-27] MEDS: POTASSIUM CHLORIDE 20 MEQ TAB PO SCH (13:29)
[2016-11-27] MEDS: PIPERACILLIN AND TAZOBACTAM 4.5 GM in D5W 100 ML IV SCH ×2 (13:29→21:28)
[2016-11-27] MEDS ORDERED: CHAPSTICK LIP BALM ONE (13:35)
--- NOTE | 2016-11-27 14:58 | GENMEDPROG ---
Chief Complaint: fall, sob Subjective Note: Still sob, coughing, some sputum. Marginally better since admission. Notes Reviewed: Yes Events from last night noted and discussed with Clinical Staff Current Medication List: Reviewed Currently: Reports: Cough, Wheezing DVT Prophylaxis: Yes - Physical Examination Vital Signs and I&O: Last Vital Signs Temp 98.2 F 11/27/16 13:05 Pulse 90 11/27/16 13:05 Resp 18 11/27/16 13:05 BP 154/61 11/27/16 13:05 Pulse Ox 94 11/27/16 13:05 Oxygen Pulse Oxygen Saturation 94 O2 Device Nasal Cannula Oxygen Flow Rate 2 Fraction of Inspired Oxygen ( FIO2) Intake & Output 11/25/16 11/26/16 11/27/16 11/28/16 06:59 06:59 06:59 06:59 Intake Total 596 Output Total 300 Balance 296 Patient's weight 60.356 kg 60.237 kg General: Alert, Oriented x3, No acute distress, Well appearing, Well nourished, Other (Normal and appropriate affect) HEENT: EOMI (Sclera white) Neck: Normal Trachea alignment, Normal inspection Lymphatics: Normal (No cervical lymphadenopathy. No supraclavicular lymphadenopathy.) Respiratory: Diminished, Rales, Rhonchi Cardiovascular: Regular rate, No Gallops,Rubs/Murmurs GI: Normal bowel sounds, Soft, Non tender (non distended) Extremities/Musculoskeletal: Other (Normal Tone). negative: Edema, Cyanosis Skin: No rashes, No significant lesion Neurological: Cranial Nerves (II-XII intact) Psych/Mental Status: Normal Affect (Fully oriented, [place] and appropriate affect ) Lab/DI/Studies Reviewed: Laboratory Tests 11/26/16 11/27/16 11/27/16 21:35 06:21 06:21 WBC 11.2 H Hgb 9.9 L Potassium 3.5 BUN 26 H Creatinine 1.20 H 1.00 - Assessment (1) LLL pneumonia Acute J18.1 - LOBAR PNEUMONIA, UNSPECIFIED ORGANISM Qualifiers: Pneumonia type: due to Pseudomonas Qualified Code(s): J15.1 - Pneumonia due to Pseudomonas Comment/Plan: Has grown Pseudomonas from her sputum in the past. Will cover for this will Zosyn, as improving will d/c vancomycin and cefepime. (2) COPD exacerbation Acute J44.1 - CHRONIC OBSTRUCTIVE PULMONARY DISEASE W (ACUTE) EXACERBATION Comment/Plan: hx of copd. with increased hypoxia, cough and sputum production will add iv steroids (3) Hypoxia Acute R09.02 - HYPOXEMIA (4) Coronary artery disease Chronic I25.10 - ATHSCL HEART DISEASE OF [place] CORONARY ARTERY W/O ANG PCTRS Qualifiers: Coronary Disease-Associated Artery/Lesion type: [place] artery [place] vs. transplanted heart: [place] heart Associated angina: without angina Qualified Code(s): I25.10 - Atherosclerotic heart disease of [place] coronary artery without angina pectoris (5) Diabetes mellitus type 2, controlled Chronic E11.9 - TYPE 2 DIABETES MELLITUS WITHOUT COMPLICATIONS Qualifiers: Diabetes mellitus complication status: with other specified complication Diabetes mellitus correction insulin use: without street railway line installer use Qualified Code( s): E11.69 - Type 2 diabetes mellitus with other specified complication Comment/Plan: Probably due to street railway line installer use of Prednisone. Hold oral diabetes medications. Check fingerstick blood sugars twice daily with Sliding scale insulin. HgA1c and urine microalbumin are pending (6) Hypertension Chronic I10 - ESSENTIAL (PRIMARY) HYPERTENSION Qualifiers: Hypertension type: essential hypertension Qualified Code(s): I10 - Essential (primary) hypertension Comment/Plan: controlled with Verapamil. (7) Pulmonary fibrosis, unspecified Chronic J84.10 - PULMONARY FIBROSIS, UNSPECIFIED Comment/Plan: On street railway line installer use of prednisone.
[2016-11-27] MEDS: METHYLPREDNISOLONE 125 MG/2 ML VIAL IV SCH ×2 (16:38→20:52)
[2016-11-27] MEDS: ATORVASTATIN 10 MG TAB PO SCH (20:46)
[2016-11-27] MEDS: ALPRAZOLAM 0.25 MG TAB PO SCH (20:46)
[2016-11-28] MEDS: Albuterol/Ipratropium Neb 3 ML NEB NEB SCH ×4 (02:50→21:21)
[2016-11-28] MEDS: PIPERACILLIN AND TAZOBACTAM 4.5 GM in D5W 100 ML IV SCH ×3 (04:05→20:23)
[2016-11-28] MEDS: METHYLPREDNISOLONE 125 MG/2 ML VIAL IV SCH ×2 (04:05→16:40)
[2016-11-28] MEDS ORDERED: CIPROFLOXACIN HCL 250 MG TAB PO SCH (05:00)
[2016-11-28 05:06] LABS: MPV 6.8 fL (7.4-10.4)
[2016-11-28 05:14] LABS: BLOOD UREA NITROGEN 29 MG/DL (7-17); CALCIUM 9.1 MG/DL (8.4-10.2); CALCULATED OSMOLALITY 276 MOs/Kg (270-290); CHLORIDE 94 mEq/L (98-107); GLUCOSE 273 MG/DL (70-99); SODIUM LEVEL 135 mEq/L (137-146)
[2016-11-28 05:34] LABS: SEG NEUTROPHIL 93 % (45-76)
[2016-11-28 05:36] LABS: TOTAL CELL COUNT 100
[2016-11-28] MEDS: REGULAR INSULIN 100 UNITS/ML - 3 ML VIAL SQ SCH ×2 (06:26→16:38)
[2016-11-28] MEDS: GLIPIZIDE XL 2.5 MG TAB PO SCH (06:26)
[2016-11-28] MEDS: VERAPAMIL 40 MG TAB PO SCH ×3 (06:26→20:31)
[2016-11-28] MEDS: OXYCODONE HCL 5 MG TABLET PO PRN ×2 (06:29→16:37)
[2016-11-28] MEDS: FLUTICASONE PROPIONATE 16 GM BOT NAS SCH (08:36)
[2016-11-28] MEDS: ARTIFICIAL TEARS OPH SOLN 15 ML OU SCH ×2 (08:36→20:43)
[2016-11-28] MEDS: CETIRIZINE HCL 10 MG TAB PO SCH (08:36)
[2016-11-28] MEDS: ESCITALOPRAM OXALATE 10 MG TAB PO SCH (08:36)
[2016-11-28] MEDS: FUROSEMIDE 40 MG TAB PO SCH ×2 (08:36→16:22)
[2016-11-28] MEDS: OXYCODONE HCL 5 MG TABLET PO SCH ×4 (08:36→20:30)
[2016-11-28] MEDS: Docusate Sodium 100 MG CAP PO SCH (08:36)
--- NOTE | 2016-11-28 08:36 | GENMEDPROG ---
Chief Complaint: Pneumonia Subjective Note: Resting comfortably in bed this morning. Has already had breakfast. Feels much better than the day prior. Still coughing up a good amount of sputum. Notes Reviewed: Yes Events from last night noted and discussed with Clinical Staff Current Medication List: Reviewed Currently: Reports: Cough, Wheezing DVT Prophylaxis: Yes - Physical Examination Vital Signs and I&O: Last Vital Signs Temp 97.5 F 11/28/16 07:41 Pulse 73 11/28/16 07:41 Resp 18 11/28/16 07:41 BP 101/80 11/28/16 07:41 Pulse Ox 96 11/28/16 07:41 Oxygen Pulse Oxygen Saturation 96 O2 Device Nasal Cannula Oxygen Flow Rate 2 Fraction of Inspired Oxygen ( FIO2) Intake & Output 11/26/16 11/27/16 11/28/16 11/29/16 06:59 06:59 06:59 06:59 Intake Total 596 240 Output Total 300 1750 Balance 296 -1510 Patient's weight 60.356 kg 59.285 kg General: Alert, Oriented x3, No acute distress, Well appearing, Well nourished, Other (Normal and appropriate affect) HEENT: EOMI (Sclera white) Neck: Normal Trachea alignment, Normal inspection Lymphatics: Normal (No cervical lymphadenopathy. No supraclavicular lymphadenopathy.) Respiratory: Diminished, Rales, Rhonchi Cardiovascular: Regular rate, No Gallops,Rubs/Murmurs GI: Normal bowel sounds, Soft, Non tender (non distended) Extremities/Musculoskeletal: Other (Normal Tone). negative: Edema, Cyanosis Skin: No rashes, No significant lesion Neurological: Cranial Nerves (II-XII intact) Psych/Mental Status: Normal Affect (Fully oriented, [place] and appropriate affect ) Lab/DI/Studies Reviewed: Laboratory Tests 11/27/16 11/28/16 11/28/16 06:21 04:20 04:20 WBC 7.2 Hgb 9.9 L 11.1 L D Plt Count 288 Potassium 4.2 BUN 29 H Creatinine 1.00 - Assessment (1) LLL pneumonia Acute J18.1 - LOBAR PNEUMONIA, UNSPECIFIED ORGANISM Qualifiers: Pneumonia type: due to Pseudomonas Qualified Code(s): J15.1 - Pneumonia due to Pseudomonas Comment/Plan: Has grown Pseudomonas from her sputum in the past. Will cover for this will Zosyn, as improving will d/c vancomycin and cefepime. Continuing to improve, continue present care. (2) COPD exacerbation Acute J44.1 - CHRONIC OBSTRUCTIVE PULMONARY DISEASE W (ACUTE) EXACERBATION Comment/Plan: hx of copd. with increased hypoxia, cough and sputum production will add iv steroids She is feeling a bit shaky and jittery, will cut back on steroids today. (3) Hypoxia Acute R09.02 - HYPOXEMIA (4) Coronary artery disease Chronic I25.10 - ATHSCL HEART DISEASE OF [place] CORONARY ARTERY W/O ANG PCTRS Qualifiers: Coronary Disease-Associated Artery/Lesion type: [place] artery [place] vs. transplanted heart: [place] heart Associated angina: without angina Qualified Code(s): I25.10 - Atherosclerotic heart disease of [place] coronary artery without angina pectoris (5) Diabetes mellitus type 2, controlled Chronic E11.9 - TYPE 2 DIABETES MELLITUS WITHOUT COMPLICATIONS Qualifiers: Diabetes mellitus complication status: with other specified complication Diabetes mellitus ceramic plater insulin use: without ceramic plater use Qualified Code( s): E11.69 - Type 2 diabetes mellitus with other specified complication Comment/Plan: Probably due to long-term use of Prednisone. Hold oral diabetes medications. Check fingerstick blood sugars twice daily with Sliding scale insulin. HgA1c and urine microalbumin are pending (6) Hypertension Chronic I10 - ESSENTIAL (PRIMARY) HYPERTENSION Qualifiers: Hypertension type: essential hypertension Qualified Code(s): I10 - Essential (primary) hypertension Comment/Plan: controlled with Verapamil. (7) Pulmonary fibrosis, unspecified Chronic J84.10 - PULMONARY FIBROSIS, UNSPECIFIED Comment/Plan: On long-term use of prednisone. Case Care Discussed with: Patient, Nursing Staff Total Time: 39
[2016-11-28] MEDS: AZELASTINE 137 MCG/SPRAY NASAL SPRAY NAS SCH ×2 (08:37→20:43)
[2016-11-28] MEDS: FLUTICASONE/SALMETEROL 250/50 DISKUS INH SCH ×2 (08:51→21:23)
[2016-11-28] MEDS: PEG-ELECTROLYTE 17 GM PACK PO SCH (11:27)
[2016-11-28] MEDS: PROBIOTIC BLEND TAB PO SCH ×2 (11:32→17:10)
[2016-11-28] MEDS: POTASSIUM CHLORIDE 20 MEQ TAB PO SCH (11:33)
[2016-11-28] MEDS: ACETAMINOPHEN 325 MG/TAB TABLET PO PRN (16:22)
[2016-11-28] MEDS: ENOXAPARIN 40 MG/0.4 ML PFS SQ SCH (17:10)
[2016-11-28] MEDS ORDERED: MAGNESIUM HYDROXIDE 30 ML BOTTLE PO PRN (17:26)
[2016-11-28] MEDS ORDERED: ALBUTEROL 0.083% 3 ML NEB NEB PRN (17:26)
[2016-11-28] MEDS ORDERED: [UNRECOGNIZED DRUG - OTHER] PO PRN (17:26)
[2016-11-28] MEDS ORDERED: LOPERAMIDE 2 MG CAP PO PRN (17:26)
[2016-11-28] MEDS: PANTOPRAZOLE 40 MG TAB PO SCH (19:37)
[2016-11-28] MEDS: ROPINIROLE 1 MG TAB PO SCH (20:29)
[2016-11-28] MEDS: ALPRAZOLAM 0.25 MG TAB PO SCH (20:29)
[2016-11-28] MEDS: ATORVASTATIN 10 MG TAB PO SCH (20:29)
[2016-11-28] MEDS: GABAPENTIN 100 MG CAP PO SCH (20:30)
[2016-11-28] MEDS ORDERED: ALBUTEROL 0.5% CONCENTRATE NEB SOLN 0.5 ML NEB SCH (21:00)
[2016-11-29] MEDS: NS/KCl 20 mEq 1,000 ML IV SCH ×2 (01:11→13:27)
[2016-11-29] MEDS: Albuterol/Ipratropium Neb 3 ML NEB NEB SCH ×4 (03:00→20:45)
[2016-11-29] MEDS: PIPERACILLIN AND TAZOBACTAM 4.5 GM in D5W 100 ML IV SCH ×3 (04:17→20:42)
[2016-11-29] MEDS: METHYLPREDNISOLONE 125 MG/2 ML VIAL IV SCH ×2 (05:27→16:27)
[2016-11-29] MEDS: PANTOPRAZOLE 40 MG TAB PO SCH ×2 (05:28→18:07)
[2016-11-29] MEDS: GABAPENTIN 100 MG CAP PO SCH ×3 (05:28→20:43)
[2016-11-29] MEDS: VERAPAMIL 40 MG TAB PO SCH ×3 (05:29→20:43)
[2016-11-29 05:33] LABS: BLOOD UREA NITROGEN 33 MG/DL (7-17); CALCIUM 8.7 MG/DL (8.4-10.2); CALCULATED OSMOLALITY 279 MOs/Kg (270-290); CHLORIDE 97 mEq/L (98-107); GLUCOSE 163 MG/DL (70-99); SODIUM LEVEL 139 mEq/L (137-146)
[2016-11-29] MEDS: OXYCODONE HCL 5 MG TABLET PO PRN (05:38)
[2016-11-29] MEDS: ARTIFICIAL TEARS OPH SOLN 15 ML OU SCH ×3 (05:42→20:42)
[2016-11-29] MEDS: GLIPIZIDE XL 2.5 MG TAB PO SCH (06:48)
[2016-11-29] MEDS: REGULAR INSULIN 100 UNITS/ML - 3 ML VIAL SQ SCH ×2 (06:49→18:09)
[2016-11-29] MEDS: Docusate Sodium 100 MG CAP PO SCH (08:33)
[2016-11-29] MEDS: PEG-ELECTROLYTE 17 GM PACK PO SCH (08:33)
[2016-11-29] MEDS: CETIRIZINE HCL 10 MG TAB PO SCH (08:33)
[2016-11-29] MEDS: OXYCODONE HCL 5 MG TABLET PO SCH ×4 (08:33→20:42)
[2016-11-29] MEDS: ASPIRIN 325 MG TAB PO SCH (08:33)
[2016-11-29] MEDS: ESCITALOPRAM OXALATE 10 MG TAB PO SCH (08:33)
[2016-11-29] MEDS: FUROSEMIDE 40 MG TAB PO SCH ×2 (08:33→16:26)
[2016-11-29] MEDS: FLUTICASONE PROPIONATE 16 GM BOT NAS SCH (08:34)
--- NOTE | 2016-11-29 08:36 | GENMEDPROG ---
Chief Complaint: COPD exacerbation Subjective Note: Feeling much better, still on 2 L nasal cannula oxygen. Has been working with Physical therapy, who recommend subacute nursing facility placement at discharge. Notes Reviewed: Yes Events from last night noted and discussed with Clinical Staff Current Medication List: Reviewed Currently: Reports: Cough, Wheezing DVT Prophylaxis: Yes - Physical Examination Vital Signs and I&O: Last Vital Signs Temp 97.8 F 11/29/16 04:46 Pulse 91 11/29/16 06:44 Resp 18 11/29/16 04:46 BP 148/68 11/29/16 04:46 Pulse Ox 96 11/29/16 04:46 Oxygen Pulse Oxygen Saturation 96 O2 Device Nasal Cannula Oxygen Flow Rate 2 Fraction of Inspired Oxygen ( FIO2) Intake & Output 11/27/16 11/28/16 11/29/16 11/30/16 06:59 06:59 06:59 06:59 Intake Total 026 055 7711 Output Total 300 1750 1650 Balance 296 -1510 -173 Patient's weight 60.356 kg 59.285 kg 60.356 kg General: Alert, Oriented x3, No acute distress, Well appearing, Well nourished, Other (Normal and appropriate affect) HEENT: EOMI (Sclera white) Neck: Normal Trachea alignment, Normal inspection Lymphatics: Normal (No cervical lymphadenopathy. No supraclavicular lymphadenopathy.) Respiratory: Diminished, Rales, Rhonchi. negative: Wheezes, Excursion Cardiovascular: Regular rate, No Gallops,Rubs/Murmurs GI: Normal bowel sounds, Soft, Non tender (non distended) Extremities/Musculoskeletal: Other (Normal Tone). negative: Edema, Cyanosis Skin: No rashes, No significant lesion Neurological: Cranial Nerves (II-XII intact) Psych/Mental Status: Normal Affect (Fully oriented, [place] and appropriate affect ) Lab/DI/Studies Reviewed: Laboratory Tests 11/28/16 11/29/16 04:20 04:40 WBC 7.2 Hgb 11.1 L D Potassium 3.9 BUN 33 H Creatinine 1.00 - Assessment (1) LLL pneumonia Acute J18.1 - LOBAR PNEUMONIA, UNSPECIFIED ORGANISM Qualifiers: Pneumonia type: due to Pseudomonas Qualified Code(s): J15.1 - Pneumonia due to Pseudomonas Comment/Plan: Has grown Pseudomonas from her sputum in the past. Will cover for this will Zosyn, as improving will d/c vancomycin and cefepime. Continuing to improve, continue present care. Sputum Gram stain is still pending at this time. (2) COPD exacerbation Acute J44.1 - CHRONIC OBSTRUCTIVE PULMONARY DISEASE W (ACUTE) EXACERBATION Comment/Plan: hx of copd. with increased hypoxia, cough and sputum production will add iv steroids She is feeling a bit shaky and jittery, steroids were cut back yesterday. (3) Hypoxia Acute R09.02 - HYPOXEMIA (4) Coronary artery disease Chronic I25.10 - ATHSCL HEART DISEASE OF [place] CORONARY ARTERY W/O ANG PCTRS Qualifiers: Coronary Disease-Associated Artery/Lesion type: [place] artery [place] vs. transplanted heart: [place] heart Associated angina: without angina Qualified Code(s): I25.10 - Atherosclerotic heart disease of [place] coronary artery without angina pectoris (5) Diabetes mellitus type 2, controlled Chronic E11.9 - TYPE 2 DIABETES MELLITUS WITHOUT COMPLICATIONS Qualifiers: Diabetes mellitus complication status: with other specified complication Diabetes mellitus intermodal customer service insulin use: without chcf use Qualified Code( s): E11.69 - Type 2 diabetes mellitus with other specified complication Comment/Plan: Probably due to chcf use of Prednisone. Hold oral diabetes medications. Check fingerstick blood sugars twice daily with Sliding scale insulin. HgA1c and urine microalbumin are pending (6) Hypertension Chronic I10 - ESSENTIAL (PRIMARY) HYPERTENSION Qualifiers: Hypertension type: essential hypertension Qualified Code(s): I10 - Essential (primary) hypertension Comment/Plan: controlled with Verapamil. (7) Pulmonary fibrosis, unspecified Chronic J84.10 - PULMONARY FIBROSIS, UNSPECIFIED Comment/Plan: On intermodal customer service use of prednisone. Case Care Discussed with: Patient, Nursing Staff Total Time: 35
[2016-11-29] MEDS: AZELASTINE 137 MCG/SPRAY NASAL SPRAY NAS SCH (08:37)
[2016-11-29] MEDS: FLUTICASONE/SALMETEROL 250/50 DISKUS INH SCH ×2 (10:12→20:46)
[2016-11-29] MEDS: PROBIOTIC BLEND TAB PO SCH ×2 (13:23→16:26)
[2016-11-29] MEDS: POTASSIUM CHLORIDE 20 MEQ TAB PO SCH (13:23)
[2016-11-29] MEDS: FERROUS SULFATE 324 MG TAB PO SCH (13:23)
[2016-11-29] MEDS: ACETAMINOPHEN 325 MG/TAB TABLET PO PRN (16:25)
[2016-11-29] MEDS: ENOXAPARIN 40 MG/0.4 ML PFS SQ SCH (18:07)
[2016-11-29] MEDS: ROPINIROLE 1 MG TAB PO SCH (20:42)
[2016-11-29] MEDS: ATORVASTATIN 10 MG TAB PO SCH (20:43)
[2016-11-29] MEDS: ALPRAZOLAM 0.25 MG TAB PO SCH (20:43)
[2016-11-30] MEDS: Albuterol/Ipratropium Neb 3 ML NEB NEB SCH ×4 (01:45→20:44)
[2016-11-30] MEDS: PIPERACILLIN AND TAZOBACTAM 4.5 GM in D5W 100 ML IV SCH ×3 (03:45→20:10)
[2016-11-30] MEDS: OXYCODONE HCL 5 MG TABLET PO SCH ×5 (03:45→20:11)
[2016-11-30] MEDS: OXYCODONE HCL 5 MG TABLET PO PRN (03:45)
[2016-11-30] MEDS: AZELASTINE 137 MCG/SPRAY NASAL SPRAY NAS SCH ×3 (04:30→20:38)
[2016-11-30] MEDS: REGULAR INSULIN 100 UNITS/ML - 3 ML VIAL SQ SCH ×2 (06:11→17:01)
[2016-11-30] MEDS: PANTOPRAZOLE 40 MG TAB PO SCH ×2 (06:37→16:37)
[2016-11-30] MEDS: VERAPAMIL 40 MG TAB PO SCH ×3 (06:37→20:10)
[2016-11-30] MEDS: GABAPENTIN 100 MG CAP PO SCH ×3 (06:37→20:11)
[2016-11-30] MEDS: METHYLPREDNISOLONE 125 MG/2 ML VIAL IV SCH ×2 (06:38→17:33)
[2016-11-30] MEDS: GLIPIZIDE XL 2.5 MG TAB PO SCH (06:38)
[2016-11-30] MEDS: ARTIFICIAL TEARS OPH SOLN 15 ML OU SCH ×3 (07:34→20:37)
[2016-11-30] MEDS: FLUTICASONE/SALMETEROL 250/50 DISKUS INH SCH ×2 (08:17→20:46)
[2016-11-30] MEDS: PEG-ELECTROLYTE 17 GM PACK PO SCH (08:32)
[2016-11-30] MEDS: CETIRIZINE HCL 10 MG TAB PO SCH (08:33)
[2016-11-30] MEDS: ASPIRIN 325 MG TAB PO SCH (08:33)
[2016-11-30] MEDS: Docusate Sodium 100 MG CAP PO SCH (08:33)
[2016-11-30] MEDS: ESCITALOPRAM OXALATE 10 MG TAB PO SCH (08:33)
[2016-11-30] MEDS: FUROSEMIDE 40 MG TAB PO SCH ×2 (08:33→16:36)
[2016-11-30] MEDS: FLUTICASONE PROPIONATE 16 GM BOT NAS SCH (08:34)
--- NOTE | 2016-11-30 09:07 | GENMEDPROG ---
Chief Complaint: pneumonia, COPD exac, resp insuff, DM-2 Currently: Reports: Cough, Wheezing DVT Prophylaxis: Yes - Physical Examination Vital Signs and I&O: Last Vital Signs Temp 98.1 F 11/30/16 08:39 Pulse 89 11/30/16 08:39 Resp 20 11/30/16 08:39 BP 165/70 11/30/16 08:39 Pulse Ox 93 11/30/16 08:39 Oxygen Pulse Oxygen Saturation 93 O2 Device Room Air Oxygen Flow Rate 2 Fraction of Inspired Oxygen ( FIO2) Intake & Output 11/27/16 11/28/16 11/29/16 11/30/16 23:59 23:59 23:59 23:59 Intake Total 836 1075 982 918 Output Total 1550 1550 1760 400 Balance -703 -240 -289 512 Patient's weight 60.237 kg 59.285 kg 60.356 kg 60.509 kg General: Alert, Oriented x3, No acute distress, Well appearing, Well nourished, Other (Normal and appropriate affect) HEENT: EOMI (Sclera white) Neck: Normal Trachea alignment, Normal inspection Lymphatics: Normal (No cervical lymphadenopathy. No supraclavicular lymphadenopathy.) Respiratory: Diminished, Rales, Rhonchi. negative: Wheezes, Excursion Cardiovascular: Regular rate, No Gallops,Rubs/Murmurs GI: Normal bowel sounds, Soft, Non tender (non distended) Extremities/Musculoskeletal: Other (Normal Tone). negative: Edema, Cyanosis Skin: No rashes, No significant lesion Neurological: Cranial Nerves (II-XII intact) Psych/Mental Status: Normal Affect (Fully oriented, Norla and appropriate affect ) - Assessment (1) Acute respiratory failure Acute J96.00 - ACUTE RESPIRATORY FAILURE, UNSP W HYPOXIA OR HYPERCAPNIA Qualifiers: Respiratory failure complication: hypoxia Qualified Code(s): J96.01 - Acute respiratory failure with hypoxia Comment/Plan: pO2 was only 46 on admission, will discharge home with oxygen. (2) Bilateral pneumonia Acute J18.9 - PNEUMONIA, UNSPECIFIED ORGANISM Qualifiers: Pneumonia type: due to unspecified organism Lung location: lower lobe of lung Qualified Code(s): J18.9 - Pneumonia, unspecified organism Comment/Plan: No pseudomonas on sputum culture this time. (3) COPD exacerbation Acute J44.1 - CHRONIC OBSTRUCTIVE PULMONARY DISEASE W (ACUTE) EXACERBATION Comment/Plan: COPD exacerbation, severe. Plan: Hold Prednisone; use IV Solumedrol. Nebs of Duoneb q 6 hours and albuterol q 2 hours prn. Sputum culture ordered. IV Cefepime and Levaquin Continuous oxygen support. Keep sats below 95% due to COPD. (4) Hypoxia Acute R09.02 - HYPOXEMIA Comment/Plan: Improved- Has weaned to 2L per [place] O2 (5) Nausea vomiting and diarrhea Acute R11.2 - NAUSEA WITH VOMITING, UNSPECIFIED; R19.7 - DIARRHEA, UNSPECIFIED (6) UTI (urinary tract infection) Acute N39.0 - URINARY TRACT INFECTION, SITE NOT SPECIFIED Qualifiers: Urinary tract infection type: site unspecified Hematuria presence: without hematuria Qualified Code(s): N39.0 - Urinary tract infection, site not specified Comment/Plan: Treated. Culture with just 25,000 Enterococcus. No symptoms currently Case Care Discussed with: Patient Education/Counseling Given To: Patient, Family Member Education/Counseling Given Regarding: Diagnosis, Treatment, Prognosis Critical Care: No Couseling Time (>50% in counseling/coordination): No Code: 58951 (12+)
[2016-11-30] MEDS: PROBIOTIC BLEND TAB PO SCH ×2 (12:29→16:37)
[2016-11-30] MEDS: FERROUS SULFATE 324 MG TAB PO SCH (12:29)
[2016-11-30] MEDS: POTASSIUM CHLORIDE 20 MEQ TAB PO SCH (12:29)
[2016-11-30] MEDS: ENOXAPARIN 40 MG/0.4 ML PFS SQ SCH (16:37)
[2016-11-30] MEDS: ATORVASTATIN 10 MG TAB PO SCH (20:10)
[2016-11-30] MEDS: ROPINIROLE 1 MG TAB PO SCH (20:10)
[2016-11-30] MEDS: ALPRAZOLAM 0.25 MG TAB PO SCH (20:10)
[2016-12-01] MEDS: NS/KCl 20 mEq 1,000 ML IV SCH (01:01)
[2016-12-01] MEDS: Albuterol/Ipratropium Neb 3 ML NEB NEB SCH ×2 (03:14→08:42)
[2016-12-01] MEDS: PIPERACILLIN AND TAZOBACTAM 4.5 GM in D5W 100 ML IV SCH (03:26)
[2016-12-01] MEDS: OXYCODONE HCL 5 MG TABLET PO PRN (03:26)
[2016-12-01 04:14] VITALS: BMI 24.8
[2016-12-01] MEDS: GABAPENTIN 100 MG CAP PO SCH (06:38)
[2016-12-01] MEDS: VERAPAMIL 40 MG TAB PO SCH (06:38)
[2016-12-01] MEDS: PANTOPRAZOLE 40 MG TAB PO SCH (06:38)
[2016-12-01] MEDS: REGULAR INSULIN 100 UNITS/ML - 3 ML VIAL SQ SCH (06:39)
[2016-12-01] MEDS: ARTIFICIAL TEARS OPH SOLN 15 ML OU SCH (06:39)
[2016-12-01] MEDS: METHYLPREDNISOLONE 125 MG/2 ML VIAL IV SCH (06:39)
[2016-12-01] MEDS: OXYCODONE HCL 5 MG TABLET PO SCH ×2 (08:23→12:14)
[2016-12-01] MEDS: GLIPIZIDE XL 2.5 MG TAB PO SCH (08:23)
[2016-12-01] MEDS: ESCITALOPRAM OXALATE 10 MG TAB PO SCH (08:23)
[2016-12-01] MEDS: ASPIRIN 325 MG TAB PO SCH (08:24)
[2016-12-01] MEDS: CETIRIZINE HCL 10 MG TAB PO SCH (08:24)
[2016-12-01] MEDS: AZELASTINE 137 MCG/SPRAY NASAL SPRAY NAS SCH (08:24)
[2016-12-01] MEDS: FUROSEMIDE 40 MG TAB PO SCH (08:24)
[2016-12-01] MEDS: FLUTICASONE PROPIONATE 16 GM BOT NAS SCH (08:25)
[2016-12-01] MEDS: Docusate Sodium 100 MG CAP PO SCH (08:28)
[2016-12-01] MEDS: PEG-ELECTROLYTE 17 GM PACK PO SCH (08:28)
[2016-12-01] MEDS: FLUTICASONE/SALMETEROL 250/50 DISKUS INH SCH (08:44)
--- NOTE | 2016-12-01 10:49 | PCM.DCS92 ---
[id number] on Admission: Yes due to other aerobic Gram-negative bacteria A J15.6 - Pneumonia due to other aerobic Gram-negative bacteria Comment: Has grown Pseudomonas from her sputum in the past. Covered for this with Zosyn, as improving, will d/c vancomycin and cefepime. (Reported allergy to PCN, but no adverse effect to Zosyn after 4 days of this IV antibiotic.) Continuing to improve, continue present care. Sputum and blood cultures are negative to date, patient is much improved. Has received 5 days of IV antibiotics, will discharge home on PO antibiotics. (2) COPD exacerbation Acute J44.1 - CHRONIC OBSTRUCTIVE PULMONARY DISEASE W (ACUTE) EXACERBATION Present on Admission: Yes Comment: Hx of copd. with increased hypoxia, cough and sputum production has been on IV steroids She is feeling a bit shaky and jittery, will change to PO steroid taper. . (3) Coronary artery disease Chronic I25.10 - ATHSCL HEART DISEASE OF [place] CORONARY ARTERY W/O ANG PCTRS Present on Admission: Yes [place] artery [place] heart without angina I25.10 - Atherosclerotic heart disease of [place] coronary artery without angina pectoris (4) Diabetes mellitus type 2, controlled Chronic E11.9 - TYPE 2 DIABETES MELLITUS WITHOUT COMPLICATIONS Present on Admission: Yes with other specified complication D D P D without custodial use L C E11.69 - Type 2 diabetes mellitus with other specified complication Comment: Probably due to intermodal dispatcher use of Prednisone. Resume oral diabetes medications. Check fingerstick blood sugars twice daily with Sliding scale insulin as needed. HgA1c =6.2 and urine microalbumin =14.1. (5) Hypertension Chronic I10 - ESSENTIAL (PRIMARY) HYPERTENSION Present on Admission: Yes essential hypertension I10 - Essential (primary) hypertension Comment: controlled with Verapamil. (6) Pulmonary fibrosis, unspecified Chronic J84.10 - PULMONARY FIBROSIS, UNSPECIFIED Present on Admission: Yes Comment: On intermodal dispatcher use of prednisone. Discharge Disposition: Assisted Living Facility Discharge Condition: Improved Cognitive Discharge Status: Unimpaired Fuctional Discharge Status: Walker Assistance, Fall Risk Physician Follow up/Referrals: Nathalia Sifuentes MD [Ambulatory] - 12/08/16 2:30 pm Home Medications / New Prescriptions: New Amoxicillin/Potassium Clav [Augmentin 875-125 Tablet] 1 each PO BID #10 tablet Hydrocodone/Chlorphen Polis [Tussionex] 5 ml PO BID PRN #120 udc PRN Reason: Cough - Alternative Continue Verapamil [Calan, Isoptin] 40 mg PO TID Ropinirole HCl 3 mg PO QHS Potassium Chloride 20 meq PO DAILY Polyethylene Glycol 3350 [Miralax] 17 gm PO DAILY Pantoprazole Sodium [Protonix] 40 mg PO BID Oxycodone HCl [Roxicodone] 5 mg PO QID Multivitamin [Multiple Vitamins] 1 tab PO DAILY Glipizide Xl [Glucotrol Xl] 2.5 mg PO 0700 Fluticasone Propionate [Flonase] 1 spray RJ DAILY Furosemide [Lasix] 40 mg PO BID Ferrous Sulfate 325 mg PO DAILY Escitalopram Oxalate [Lexapro] 20 mg PO DAILY Docusate Sodium 100 mg PO DAILY Cetirizine HCl [Zyrtec] 10 mg PO DAILY Azelastine HCl [Astelin] 1 spray RJ BID Atorvastatin Calcium [Lipitor] 10 mg PO QHS Aspirin/Calcium Carbonate/Mag [Aspirin Buffered 325 mg Tab] 325 mg PO DAILY Alprazolam [Xanax] 0.5 mg PO QHS Fluticasone/Salmeterol [Advair 250-50 Diskus] 1 puff INH BID Albuterol Sulfate [Proventil (Concentrate)] 0.5 ml NEB BID Tiotropium [place] [Spiriva] 18 mcg INH DAILY Carboxymethylcellulos/Glycerin [Refresh Optive Eye Drops] 1 drop OU BID Vitamin E 1,000 unit PO DAILY Prednisone [Deltasone, Orasone] 5 mg PO DAILY Tizanidine [Zanaflex] 2 mg PO Q8H PRN PRN Reason: Muscle Spasms Acetaminophen Ex Str Tablet [TYLENOL EXTRA STRENGTH Tablet] 1,000 mg PO Q6H PRN PRN Reason: Pain Phosp Acid/Dextrose/Fructose [Emetrol Oral Solution] 30 ml PO .Q15M PRN PRN Reason: Nausea Loperamide HCl [Imodium] 2 mg PO DIR PRN MDD 8 CAPS/DAY PRN Reason: Diarrhea Cyanocobalamin (Vitamin B-12) [Cyanocobalamin Injection] 1,000 mcg IM QMONTH Magnesium Hydroxide [Milk of Magnesia] 30 ml PO BID PRN PRN Reason: Constipation Mag Hydrox/Al Hydrox/Simeth [Maalox Suspension] 30 ml PO QID PRN PRN Reason: INDIGESTION Cranberry Extract/Vit C [Azo Cranberry Softgel (250 mg/30 mg)] 1 cap PO DAILY Probiotic Blend [Alycia Q] 1 tab PO BID #20 tab Gabapentin [Neurontin] 100 mg PO TID Hypromellose [Artificial Tears] 1 drop OU TID Albuterol Sulfate 2.5 mg NEB Q4H PRN PRN Reason: Shortness Of Breath Discontinued Oseltamivir Phosphate [Tamiflu] 75 mg PO DAILY Discharge Home Medication List Albuterol Sulfate [Proventil (Concentrate)] 0.5 ml NEB BID 11/05/15 [History Confirmed 11/27/16 Last Taken 11/26/16] Alprazolam [Xanax] 0.5 mg PO QHS 11/05/15 [History Confirmed 11/27/16 Last Taken 11/26/16] Aspirin/Calcium Carbonate/Mag [Aspirin Buffered 325 mg Tab] 325 mg PO DAILY [History Confirmed 11/27/16 Last Taken 11/26/16] Atorvastatin Calcium [Lipitor] 10 mg PO QHS 11/05/15 [History Confirmed Last Taken 11/26/16] Azelastine HCl [Astelin] 1 spray RJ BID 11/05/15 [History Confirmed 11/27/16 Last Taken 11/26/16] Cetirizine HCl [Zyrtec] 10 mg PO DAILY 11/05/15 [History Confirmed 11/27/16 Last Taken 11/26/16] Docusate Sodium 100 mg PO DAILY 11/05/15 [History Confirmed 11/27/16 Last Taken 11/26/16] Escitalopram Oxalate [Lexapro] 20 mg PO DAILY 11/05/15 [History Confirmed Last Taken 11/26/16] Ferrous Sulfate 325 mg PO DAILY 11/05/15 [History Confirmed 11/27/16 Last Taken 11/26/16] Fluticasone Propionate [Flonase] 1 spray RJ DAILY 11/05/15 [History Confirmed 11/27/16 Last Taken 11/26/16] Fluticasone/Salmeterol [Advair 250-50 Diskus] 1 puff INH BID 11/05/15 [History Confirmed 11/27/16 Last Taken 11/26/16] Furosemide [Lasix] 40 mg PO BID 11/05/15 [History Confirmed 11/27/16 Last Taken 11/26/16] Glipizide Xl [Glucotrol Xl] 2.5 mg PO 0700 11/05/15 [History Confirmed 11/27/16 Last Taken 11/26/16] Multivitamin [Multiple Vitamins] 1 tab PO DAILY 11/05/15 [History Confirmed 08/05 Last Taken 11/26/16] Oxycodone HCl [Roxicodone] 5 mg PO QID 11/05/15 [History Confirmed 11/27/16 Last Taken 11/26/16] Pantoprazole Sodium [Protonix] 40 mg PO BID 11/05/15 [History Confirmed Last Taken 11/26/16] Polyethylene Glycol 3350 [Miralax] 17 gm PO DAILY 11/05/15 [History Confirmed Last Taken 10/19/16 11:45] Potassium Chloride 20 meq PO DAILY 11/05/15 [History Confirmed 11/27/16 Last Taken 11/26/16] Ropinirole HCl 3 mg PO QHS 11/05/15 [History Confirmed 11/27/16 Last Taken 11/26] Verapamil [Calan, Isoptin] 40 mg PO TID 11/05/15 [History Confirmed 11/27/16 Last Taken 11/26/16] Carboxymethylcellulos/Glycerin [Refresh Optive Eye Drops] 1 drop OU BID [History Confirmed 11/27/16 Last Taken 11/26/16] Prednisone [Deltasone, Orasone] 5 mg PO DAILY 11/06/15 [History Confirmed Last Taken 11/26/16] Tiotropium [place] [Spiriva] 18 mcg INH DAILY 11/06/15 [History Confirmed Last Taken 11/26/16] Vitamin E 1,000 unit PO DAILY 11/06/15 [History Confirmed 11/27/16 Last Taken ] Acetaminophen Ex Str Tablet [TYLENOL EXTRA STRENGTH Tablet] 1,000 mg PO Q6H PRN 10/14/16 [History Confirmed 11/27/16 Last Taken 10/19/16 05:52] Cranberry Extract/Vit C [Azo Cranberry Softgel (250 mg/30 mg)] 1 cap PO DAILY [History Confirmed 11/27/16 Last Taken 11/26/16] Cyanocobalamin (Vitamin B-12) [Cyanocobalamin Injection] 1,000 mcg IM QMONTH [History Confirmed 11/27/16 Last Taken 11/15/16] Loperamide HCl [Imodium] 2 mg PO DIR PRN MDD 8 CAPS/DAY 10/14/16 [History Confirmed 11/27/16 Last Taken Unknown] Mag Hydrox/Al Hydrox/Simeth [Maalox Suspension] 30 ml PO QID PRN 10/14/16 [ History Confirmed 11/27/16 Last Taken Unknown] Magnesium Hydroxide [Milk of Magnesia] 30 ml PO BID PRN 10/14/16 [History Confirmed 11/27/16 Last Taken 10/09/16] Phosp Acid/Dextrose/Fructose [Emetrol Oral Solution] 30 ml PO .Q15M PRN [History Confirmed 11/27/16 Last Taken Unknown] Tizanidine [Zanaflex] 2 mg PO Q8H PRN 10/14/16 [History Confirmed 11/27/16 Last Taken Unknown] Probiotic Blend [Alycia Q] 1 tab PO BID #20 tab 10/19/16 [Rx Confirmed 11/27/16 Last Taken 11/26/16] Albuterol Sulfate 2.5 mg NEB Q4H PRN 11/27/16 [History Confirmed 11/27/16 Last Taken Unknown] Gabapentin [Neurontin] 100 mg PO TID 11/27/16 [History Confirmed 11/27/16 Last Taken 11/26/16] Hypromellose [Artificial Tears] 1 drop OU TID 11/27/16 [History Confirmed Last Taken 11/26/16] Amoxicillin/Potassium Clav [Augmentin 875-125 Tablet] 1 each PO BID #10 tablet 12/01/16 [Rx Last Taken Unknown] Hydrocodone/Chlorphen Polis [Tussionex] 5 ml PO BID PRN #120 udc 12/01/16 [Rx Last Taken Unknown] O2 Device: Room Air Diet at Discharge: Cardiac, Heart Healthy, Diabetic, 1800 Calorie Activity: As Tolerated, No Driving Call Office For: Worsening Symptoms, Fever over 101 F Discontinue use of:: Alcohol, All Types of Tobacco - DC Summary Notes Home Health Need / [facility] Services:: Patient requires a skilled evaluation for rehabilitation services. To include gait training, transfer training and stair training. Instruction on use of assistive devices for ambulation on all surfaces. Instruct and upgrade home exercise program and therapeutic exercises to increase strength and endurance.Passive and active ROM exercises for strengthening. Recommend home adaptation to facilitate safety. Safety, pain and medication management. Hospital Course Note:: Discharge summary on patient named STONE BENOIT [facility] by Olivier Palomo MD. Date of discharge is [12/01/16]. The patient is an 86 year old frail elderly woman who is well-known to this facility. She presented with recurrent symptoms of pneumonia and COPD exacerbation. Her previous admission had been complicated be a pseudomonas pneumonia, so we made certain to cover for pseudomonas again during this admission with IV Zosyn and Levaquin. She did have sputum, blood , and urine cultures obtained. All culture specimens have remained negative and the patient has improved with her current antibiotic regimen. She will be discharged home to continue on PO Augmentin 875 mg BID for the next 5 days. She has already received five days of IV Zosyn. She will follow-up with Dr. Sifuentes in 1 week. Total Time: 40 min Code: 81922 (>30min.) - Physical Exam Vital Signs: Last Vital Signs Temp 97.5 F 12/01/16 08:01 Pulse 91 12/01/16 08:03 Resp 18 12/01/16 08:01 BP 154/68 12/01/16 08:01 Pulse Ox 93 12/01/16 08:01 Oxygen Pulse Oxygen Saturation 93 O2 Device Room Air Oxygen Flow Rate 2 Fraction of Inspired Oxygen ( FIO2) Constitutional: No apparent distress, Alert Oriented to: Time, Person, Place - HEENT Head: Normal (normocephalic, atraumatic.), Other (No cervical lymphadenopathy. No supraclavicular lymphadenopathy. Neck: No palpable mass, supple , trachea midline.) Eye: Normal (pupils equal, reactive to light, and round; EOMI, Sclera white) Oropharynx: Normal (Pharynx: Moist without exudate,Gums-no swelling, No oropharyngeal lesions or erythema, Mucous membranes are dry.) ENT EAC: Normal (No oropharyngeal lesions or erythema. Mucous membranes are dry. ) TMJ: Normal Nose: No Symptoms Reported (septum midline, Nares patent, without discharge or bleeding.) - Respiratory/Cardiovascular Respiratory: Normal - CTA, Diminished. negative: Wheezes, Excursion Cardiovascular: Normal - GI Auscultation: Normal (normal active sounds) Palpation: Normal (Soft,non distended,nontender. No hepatosplenomegaly.) Tenderness: Non tender (No rebound or guarding) Alexander's Sign: Negative Rectal Exam: Deferred - Musculoskeletal Back: Normal (Non-Tender) Extremities: Normal (Normal tone, DP pulses 2+ bilaterally, No cyanosis or edema bilaterally, FROM bilaterally.) - Integumentary Skin: Warm, Dry Lymphatics: Normal (No cervical lymphadenopathy. No supraclavicular lymphadenopathy.) - Neurologic Memory Impaired: Normal Motor Function: Normal Cranial Nerve: Normal Cerebellar: Normal. negative: Ataxia, Past-Pointing, Tremor Mood Description: Normal (Fully oriented. Normal and appropriate affect.) Thought: Coherent Perception: Normal (Normal and appropriate affect.)
[2016-12-01 10:56] VITALS: BP 160/82; TEMP 98.3
[2016-12-01 11:53] VITALS: PULSE 95
[2016-12-01] MEDS: PROBIOTIC BLEND TAB PO SCH (12:13)
[2016-12-01] MEDS: POTASSIUM CHLORIDE 20 MEQ TAB PO SCH (12:14)
[2016-12-01] MEDS: FERROUS SULFATE 324 MG TAB PO SCH (12:14)
== END 2016-12-01 14:38 | disposition home health service (06) | DRG 178 ==
LOC: ED 20:55 → EDINP 23:38 → PCU 11-27 11:43
PROVIDERS: ADMIT Internal Medicine; ATTEND Family Medicine
PROC: 039B3ZZ Drainage of Right Radial Artery, Percutaneous Approach (ICD-10-PCS; principal; 2016-11-26)
DX: J15.6 Pneumonia due to other Gram-negative bacteria (principal); J44.1 Chronic obstructive pulmonary disease with (acute) exacerbation; E11.69 Type 2 diabetes mellitus with other specified complication; J44.0 Chronic obstructive pulmonary disease with (acute) lower respiratory infection; I25.10 Atherosclerotic heart disease of native coronary artery without angina pectoris; I10 Essential (primary) hypertension; I50.9 Heart failure, unspecified; Z98.61 Coronary angioplasty status; E78.00 Pure hypercholesterolemia, unspecified; J45.909 Unspecified asthma, uncomplicated; Z87.01 Personal history of pneumonia (recurrent); K21.9 Gastro-esophageal reflux disease without esophagitis; M19.90 Unspecified osteoarthritis, unspecified site; Z85.3 Personal history of malignant neoplasm of breast; H54.62 Unqualified visual loss, left eye, normal vision right eye; I69.998 Other sequelae following unspecified cerebrovascular disease; F41.9 Anxiety disorder, unspecified; Z88.8 Allergy status to other drugs, medicaments and biological substances; Z88.2 Allergy status to sulfonamides; Z88.0 Allergy status to penicillin; Z79.899 Other long term (current) drug therapy; Z79.82 Long term (current) use of aspirin; Z87.891 Personal history of nicotine dependence; D72.825 Bandemia; R09.02 Hypoxemia
CPT/HCPCS: 36415; 36600; 71020; 73502; 80048; 80053; 81001; 82043; 82550; 82553; 82803; 82962; 83036; 83605; 83880; 84443; 84484; 85007; 85025; 85027; 85610; 85730; 87040; 87070; 87086; 87205; 87804; 93005; 94640; 96372; 97162; 98960; 99284; G0237; J0692; J1650; J1956; J2543; J2930; J3370; J3490; J7040; J7060; J7070; J7620